=== PATIENT | female | born 1945 | race Caucasian/White ===

== ENCOUNTER 2018-01-03 09:37 | Outpatient (CLI) | payer MEDICARE | END 2018-01-03 09:38 | disposition home or self-care (01) | LOC: BICMAMMO 09:37 | PROVIDERS: ATTEND Internal Medicine Hematology & Oncology | DX: Z12.31 Encounter for screening mammogram for malignant neoplasm of breast (principal) | CPT/HCPCS: 77063; 77067 ==

== ENCOUNTER 2019-01-07 10:35 | Outpatient (CLI) | payer MEDICARE ==
--- NOTE | 2019-01-07 11:12 | MMO ---
Bilateral MAMMO Bilat Screen [facility]. CLINICAL HISTORY: Patient is 73 years old and is seen for screening. The patient has no family history of breast cancer. The patient has no personal history of cancer. 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 VIEWS: The views performed were: bilateral craniocaudal with tomosynthesis and bilateral mediolateral oblique with tomosynthesis. FILMS COMPARED: The present examination has been compared to prior imaging studies performed at [facility] on 05/28/2015, 01/01/2016, 01/02/2017 and 01/03/2018. MAMMOGRAM FINDINGS: There are scattered fibroglandular densities. Finding 1: There is a stable area of architectural distortion with associated post-surgical scar seen in the right breast. Finding 2: There are multiple biopsy clips seen in the right breast. Finding 3: There are stable benign appearing calcifications seen in both breasts. There are no suspicious masses, suspicious calcifications, or new areas of architectural distortion. IMPRESSION: THERE IS NO MAMMOGRAPHIC EVIDENCE OF MALIGNANCY. A ROUTINE FOLLOW-UP MAMMOGRAM IN 1 YEAR IS RECOMMENDED. THE RESULTS OF THIS EXAM WERE SENT TO THE PATIENT. ACR BI-RADS Category 2 - Benign finding MAMMOGRAPHY NOTE: 1. A negative mammogram report should not delay a biopsy if a dominant of clinically suspicious mass is present. 2. Approximately 10% to 15% of breast cancers are not detected by mammography. 3. Adenosis and dense breasts may obscure an underlying neoplasm.
== END 2019-01-07 10:36 | disposition home or self-care (01) ==
LOC: BICMAMMO 10:35
PROVIDERS: ATTEND Internal Medicine Hematology & Oncology
DX: Z12.31 Encounter for screening mammogram for malignant neoplasm of breast (principal); Z98.890 Other specified postprocedural states
CPT/HCPCS: 77063; 77067

== ENCOUNTER 2019-05-04 16:33 | Observation (INO) | payer MEDICARE ==
[2019-05-04] MEDS ORDERED: Lidocaine 2% 10 ML INJ ONE (17:35)
[2019-05-04] MEDS ORDERED: Lidocaine 1% PF 5 ML VIAL ONE ×2 (17:43→22:39)
[2019-05-04] MEDS ORDERED: Lidocaine 1% w/Epinephrine 1:100K 20 ML VIAL FS SCH (18:00)
[2019-05-04] MEDS ORDERED: Morphine 4 MG/ML VIAL ONE (18:35)
[2019-05-04] MEDS ORDERED: Fentanyl 100 MCG/2 ML VIAL SLOW IVP SCH (21:30)
[2019-05-04] MEDS ORDERED: Fentanyl 100 MCG/2 ML VIAL SLOW IVP PRN (21:45)
[2019-05-04] MEDS ORDERED: Fentanyl 100 MCG/2 ML VIAL ONE ×3 (21:53→22:13)
[2019-05-04] MEDS ORDERED: Propofol 500 MG/50 ML VIAL ONE ×2 (22:02→22:13)
[2019-05-04] MEDS ORDERED: Chlorhexidine Gluconate 15 ML UDCUP SSP ONE (22:03)
[2019-05-04] MEDS ORDERED: Midazolam HCl 2 mg/2 ml Vial ONE (22:13)
[2019-05-04] MEDS ORDERED: Ketamine 50 MG/ML (10ML VIAL) ONE ×2 (22:13→22:21)
[2019-05-04] MEDS ORDERED: Penicillin G Potassium 2.5 MILL.UNITS in Sodium Chloride 0.9% 50 ML IVPB SCH (22:15)
[2019-05-04] MEDS ORDERED: Famotidine/PF 20 mg/2ml Vial ONE (22:19)
[2019-05-04] MEDS ORDERED: Esmolol 100 MG/10 ML VIAL ONE (22:39)
[2019-05-04] MEDS ORDERED: Ondansetron PF 4 MG/2 ML Vial ONE (22:39)
[2019-05-04] MEDS ORDERED: Labetalol HCl 100 MG/20 ML VIAL ONE (22:39)
[2019-05-04] MEDS ORDERED: Tranexamic Acid 1,000 MG/10 ML VIAL ONE ×3 (23:06→23:09)
--- NOTE | 2019-05-04 23:21 | CON ---
DATE OF CONSULTATION: HISTORY OF PRESENT ILLNESS: A 74-year-old female, status post ground level fall with anterior alveolar fracture and dental posterior subluxation, presents to the ED. OMFS consulted for treatment and evaluation. MEDICAL HISTORY: Reviewed and significant for history of a stroke, currently being managed on aspirin and Plavix. PHYSICAL EXAMINATION: VITAL SIGNS: Stable. She is afebrile. GENERAL: She is well nourished, well distended. Pain is well controlled. She is able to converse. HEAD, EARS, EYES, NOSE, AND THROAT: Normocephalic, atraumatic. Eyes are equal. Pupils are equal, round, and reactive to light and accommodation. Nose is midline. Nares are patent. Throat is supple. MAXILLOFACIAL: Moderate upper lip edema, ecchymosis, mid upper lip 3-mm laceration along the vermilion border, very superficial. Significant posterior luxation of teeth #8 and 9 with malocclusion, obvious maxillary anterior alveolar fracture with dental displacement preventing patient from occluding in centric occlusion. Teeth #10 and #7 fractured crowns at the level of the gingiva, non-restorable. CARDIAC: Regular rhythm and rate. No murmurs, rubs, or gallops. PULMONARY: Clear to auscultation bilaterally. No wheezes, rales, or rhonchi. MUSCULOSKELETAL: 5/5 upper and lower extremity strength. NEURO: Cranial nerves 2 through 12 grossly intact. IMAGING DATA: CT scan of maxillofacial, noncontrast, reveals posterior partial avulsion and luxation of teeth #8 and 9 secondary to an alveolar fracture that is displaced and complete. Teeth #10 and 7; crowns are fractured at the level of gingiva concerning for restorability. Tooth #6 has a periapical radiolucency, likely a chronic problem. No other osseous fractures identified. LABORATORY DATA: CBC and Chem panel are pending. PLAN: Take to the operating room for closed reduction of alveolar fracture with Jose G arch bar placement and partial rigid fixation secondary to alveolar fracture, extraction of nonrestorable teeth, closure of any soft tissue or mucosal lacerations. The patient will likely be admitted for observation in the Med- Surg floor due to the procedure taking place at 11:00 p.m. Job ID: [id number] [facility]
[2019-05-04] MEDS ORDERED: traMADol HCl 50 MG TAB PO PRN (23:53)
[2019-05-04] MEDS ORDERED: Acetaminophen 325 MG TAB PO PRN (23:54)
[2019-05-04] MEDS ORDERED: Promethazine HCl 25 MG/ML VIAL IM PRN (23:57)
[2019-05-04] MEDS ORDERED: Promethazine HCl 25 MG/ML VIAL SLOW IVP PRN (23:57)
[2019-05-04] MEDS ORDERED: PACU-Morphine 4MG/ML VIAL SLOW IVP PRN (23:57)
[2019-05-04] MEDS ORDERED: Ketorolac Tromethamine 30 MG/ML VIAL IVP PRN (23:57)
[2019-05-05] MEDS ORDERED: Ondansetron PF 4 MG/2 ML Vial SLOW IVP PRN (00:05)
[2019-05-05] MEDS ORDERED: Acetaminophen 325 MG TAB PO PRN (01:03)
[2019-05-05 04:41] VITALS: BMI 41.5
[2019-05-05] MEDS: [UNRECOGNIZED DRUG - OTHER] IVPB SCH ×2 (05:46→08:29)
[2019-05-05] MEDS: ADMIXTURE FEE IVPB SCH ×2 (05:46→08:29)
[2019-05-05] MEDS: PENICILLIN POTASSIUM IVPB SCH ×2 (05:46→08:29)
[2019-05-05] MEDS ORDERED: Chlorhexidine Gluconate 15 ML UDCUP SSP SCH (07:00)
[2019-05-05 07:52] VITALS: BP 102/63; TEMP 97.6
[2019-05-05] MEDS ORDERED: FLU VACC TS2019-20(65YR UP)/PF 180 MCG/0.5 ML SYRINGE IM ONE (09:00)
--- NOTE | 2019-05-07 10:40 | OP ---
DATE OF PROCEDURE: 05/04/2019 PREOPERATIVE DIAGNOSES: Maxillary anterior alveolar plate fracture, nonrestorable #7 and #10 and posteriorly luxated teeth #8 and #9. POSTOPERATIVE DIAGNOSES: Maxillary anterior alveolar plate fracture, nonrestorable #7 and #10 and posteriorly luxated teeth #8 and #9. PROCEDURES PERFORMED: 1. Application of Daniel arch bars and reduction of alveolar plate fracture. 2. Extraction of teeth #7 and #10. 3. Repositioning and stabilizing teeth #8 and #9 using daniel arch bar back: None. ESTIMATED BLOOD LOSS: Less than 10 mL. URINE OUTPUT: None. No Acuna. FINDINGS: Gross posteriorly displaced anterior maxillary alveolus attached to the soft tissue pedicle, mildly displaced #8 and #9, but stable, nonrestorable #7 and #10. COMPLICATIONS: None. DISPOSITION: PACU. HARDWARE: Stainless steel Daniel arch bars with 26-gauge wire fixation. COMMENTS: No surgical or anesthesia complications. INDICATIONS: The patient initially presented to [facility] after sustaining a ground level fall with significant maxillary anterior dentoalveolar fracture and displacement. After clinical assessment, it was noted that the patient would require alveolar reduction in an operating room setting with application of Daniel arch bars and repositioning of teeth #8 and #9 in addition to extraction of teeth #7 and #10. Risks, benefits, alternatives, and indications for procedure were discussed with the patient and she had the opportunity to ask questions and have them answered. She elected to proceed with the recommended procedure. DESCRIPTION OF PROCEDURE: The patient was then transferred to the operating room B, placed on the operating room table in a supine position. Standard monitors and preoxygenation were applied. The patient was noted to be stable, induced into a state of deep sedation under local MAC via an intravenous route. The patient was then placed in a slight reverse Trendelenburg position. No Acuna was placed. At this point, using local anesthesia, infiltrated 6 mL of 2% lidocaine with 1:100, 000 epinephrine. We then used a #9 periosteal elevator and slightly released the tissue around teeth #7 and teeth #10. Teeth #7 and #10 were both extracted using elevators and forceps. Copious irrigation of site. Next, repositioned teeth #8 and #9, which were stable and moved as a unit of the maxillary alveolar complex. Site was reduced using Daniel arch bars, which were fixated to the maxillary dentition using 26-gauge stainless steel wires. Site was noted to be stable. Occlusion was assessed and mandibular dentition was noted to not be causing occlusal trauma to the lingual aspect of teeth #8 and #9. 3-0 chromic gut suture was placed over the extraction sites #7 and #10. Copious irrigation of all sites. At this point, the procedure was deemed complete. The patient had spontaneous respirations and were intact. The patient was then transferred to the PACU in stable condition with no complications. Job ID: [id number] [facility]PITALBenjamín
== END 2019-05-05 10:30 | disposition home or self-care (01) ==
LOC: ERS 16:33 → SDC/OP 23:20 → SJJU 23:48
PROVIDERS: ADMIT Oral & Maxillofacial Surgery; ATTEND Oral & Maxillofacial Surgery
PROC: 0NSRXZZ Reposition Maxilla, External Approach (ICD-10-PCS; principal; 2019-05-04)
PROC: 0CDWXZ1 Extraction of Upper Tooth, Multiple, External Approach (ICD-10-PCS; 2019-05-04)
DX: S02.42XA Fracture of alveolus of maxilla, initial encounter for closed fracture (principal); K08.89 Other specified disorders of teeth and supporting structures; I10 Essential (primary) hypertension; C50.919 Malignant neoplasm of unspecified site of unspecified female breast; Z79.82 Long term (current) use of aspirin; Z79.899 Other long term (current) drug therapy; Z88.5 Allergy status to narcotic agent; Z86.73 Personal history of transient ischemic attack (TIA), and cerebral infarction without residual deficits; W18.30XA Fall on same level, unspecified, initial encounter
CPT/HCPCS: 21421; 41899; 94640; 96365; 96366; 96375; 99284; G0378; 96374; G0390; J0131; J2001; J2250; J2270; J2405; J2540; J2704; J3010; S0028

== ENCOUNTER 2019-08-09 11:52 | Outpatient (CLI) | payer MEDICARE ==
--- NOTE | 2019-08-09 13:53 | MRI ---
Exam: Brain MRI with and without contrast HISTORY: Ataxia. Difficulty walking. Balance issues x3 weeks. COMPARISON: 10/09/2014 FINDINGS: Gradient echo sequence: No hemorrhage Calvarium: Appropriate T1 marrow signal intensity Midline brain parenchyma: Unremarkable Cerebrum:No parenchymal mass, mass effect or midline shift. Age-appropriate atrophy. T2 and FLAIR whi te matter hyperintensities, slightly more prevalent since the previous examination likely represents progression of chronic small vessel ischemic change. No associated restricted diffusion or white matter enhancement. Ventricles: No evidence of hydrocephalus. Sinuses and mastoid air cells: Adequate aeration Diffusion: Central arterial flow is maintained. Absent restricted diffusion. Postcontrast images: No pathologic enhancement of the brain parenchyma. IMPRESSION: 1. Progression of T2 and FLAIR white matter hyperintensities likely due to progression of chronic sma ll vessel ischemic change. 2. No pathologic enhancement the brain parenchyma. 3. Absent effusion. No acute infarct. 4. Adequate aeration of the mastoid air cells. 5. No signal abnormality in the posterior fossa
--- NOTE | 2019-08-09 14:17 | MRI ---
MRI OF THE LUMBAR SPINE WITHOUT CONTRAST: DATE: 08/09/2019. HISTORY: Difficulty walking, fall in April. TECHNIQUE: Multiplanar, multisequence MR imaging of the lumbar spine obtained without contrast. FINDINGS: On the basis of 5 lumbar-type vertebral bodies the conus medullaris terminates at the L1-2 level. T12-L1: Mild bilateral facet hypertrophy. There is disk space narrowing and disk desiccation. Smal l bilateral perineural sleeve cyst. No central canal or neural foraminal stenosis. L1-2: There is disk space narrowing with disk desiccation and mild disk bulge. Mild bilateral facet hypertrophy and hypertrophy of the ligamentum flavum. Vacuum disk formation and mild anterior osteo phyte formation. No significant central canal or neural foraminal stenosis. L2-3: Mild bilateral facet hypertrophy. There is disk space narrowing and disk desiccation with mil d disk bulge and mild central canal stenosis. Mild right neural foraminal stenosis. L3-4: Disk space narrowing with disk desiccation and vacuum disk formation. Bilateral laminectomy c hanges are present. Minimal disk bulge with no central canal stenosis. Mild bilateral facet hypertr ophy. There is moderate right and mild left neural foraminal stenosis. L4-5: There is disk space narrowing with disk desiccation. There is mild anterolisthesis of L4 on L 5 measuring 5 mm. Bilateral facet hypertrophy with mild bilateral neural foraminal stenosis. No sig nificant central canal stenosis. L5-S1: There is disk space narrowing and disk desiccation. Mild bilateral facet hypertrophy with no significant central canal or neural foraminal stenosis. Postoperative T2 hyperintensity is seen pos terior to the thecal sac at L3 and L4 as well as within the subcutaneous fat posterior to the L2, L3, and L4 vertebral levels. The visualized retroperitoneal structures demonstrate no acute findings. IMPRESSION: Postoperative and degenerative change within the lumbar spine as detailed above. POS: TPC
== END 2019-08-09 11:53 | disposition home or self-care (01) ==
LOC: SCSMRI 11:52
PROVIDERS: ATTEND Psychiatry & Neurology Neurology
DX: R27.0 Ataxia, unspecified (principal); M47.816 Spondylosis without myelopathy or radiculopathy, lumbar region; Z98.890 Other specified postprocedural states; H74.8X9 Other specified disorders of middle ear and mastoid, unspecified ear
CPT/HCPCS: 70553; 72148; 82565

== ENCOUNTER 2020-01-27 10:48 | Outpatient (CLI) | payer MEDICARE ==
--- NOTE | 2020-01-27 12:07 | MMO ---
Bilateral MAMMO Bilat Screen [facility]. CLINICAL HISTORY: Patient is 75 years old and is seen for screening. The patient has no family history of breast cancer. The patient has a history of malignant (generic) in the right breast at age 65. 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 VIEWS: The views performed were: bilateral craniocaudal with tomosynthesis and bilateral mediolateral oblique with tomosynthesis. FILMS COMPARED: The present examination has been compared to prior imaging studies performed at [facility] [place] on 01/01/2016, 01/02/2017, 01/03/2018 and 01/07/2019. This study has been interpreted with the assistance of computer-aided detection. MAMMOGRAM FINDINGS: There are scattered fibroglandular densities. Finding 1: There are stable benign appearing calcifications seen in both breasts. Finding 2: There is a stable post-surgical scar seen in the right breast. Finding 3: There are stable focal asymmetries seen in both breasts. There are no suspicious masses, suspicious calcifications, or new areas of architectural distortion. IMPRESSION: THERE IS NO MAMMOGRAPHIC EVIDENCE OF MALIGNANCY. A ROUTINE FOLLOW-UP MAMMOGRAM IN 1 YEAR IS RECOMMENDED. THE RESULTS OF THIS EXAM WERE SENT TO THE PATIENT. ACR BI-RADS Category 2 - Benign finding MAMMOGRAPHY NOTE: 1. A negative mammogram report should not delay a biopsy if a dominant of clinically suspicious mass is present. 2. Approximately 10% to 15% of breast cancers are not detected by mammography. 3. Adenosis and dense breasts may obscure an underlying neoplasm. Reported by: MATTHIAS DINERO MD Electonically Signed: [id number]
== END 2020-01-27 10:49 | disposition home or self-care (01) ==
LOC: BICMAMMO 10:48
PROVIDERS: ATTEND Internal Medicine Hematology & Oncology
DX: Z12.31 Encounter for screening mammogram for malignant neoplasm of breast (principal); Z85.3 Personal history of malignant neoplasm of breast; Z98.890 Other specified postprocedural states
CPT/HCPCS: 77063; 77067

== ENCOUNTER 2021-01-28 08:40 | Outpatient (CLI) | payer MEDICARE | END 2021-01-28 08:41 | disposition home or self-care (01) | LOC: BICMAMMO 08:40 | PROVIDERS: ATTEND Internal Medicine Hematology & Oncology | DX: Z12.31 Encounter for screening mammogram for malignant neoplasm of breast (principal); Z85.3 Personal history of malignant neoplasm of breast; Z98.890 Other specified postprocedural states | CPT/HCPCS: 77063; 77067 ==

== ENCOUNTER 2021-03-15 14:47 | Outpatient (CLI) | payer MEDICARE | END 2021-03-15 14:48 | disposition home or self-care (01) | LOC: BICMAMMO 14:47 | PROVIDERS: ATTEND Family Medicine | DX: Z13.820 Encounter for screening for osteoporosis (principal); M85.852 Other specified disorders of bone density and structure, left thigh; M81.0 Age-related osteoporosis without current pathological fracture; Z78.0 Asymptomatic menopausal state | CPT/HCPCS: 77080 ==

== ENCOUNTER 2021-03-30 17:33 | Inpatient (IN) | payer MEDICARE ==
[2021-03-30 18:33] LABS: Hemoglobin 13.5 g/dL (12.0-16.0); Mean Corpuscular Hemoglobin 35.2 pg (27.0-31.0); Platelet Count 255 thou/uL (130-400); RBC Distribution Width 11.1 % (11.5-14.5); Red Blood Cell (RBC) Count 3.82 mill/uL (4.20-5.40); White Blood Cell (WBC) Count 17.8 thou/uL (4.8-10.8)
[2021-03-30 18:49] LABS: Band 6 % (5-11); Lymphocytes 5 % (21-51); MDiff Complete? YES; Macrocytosis SLIGHT = 6-15 cells (100X) (0-5/hpf); Monocytes 5 % (0-10); Neutrophil 84 % (42-75); Platelet Morphology Comment Appears Adequate
[2021-03-30 18:53] LABS: ALT (SGPT) 14 U/L (8-55); AST (SGOT) 20 U/L (5-34); Albumin 3.8 g/dL (3.4-4.8); Alkaline Phosphatase 135 U/L (40-110); Anion Gap 14 mmol/L (10-20); BUN (Urea Nitrogen) 20 mg/dL (9.8-20.1); Bilirubin, Total 0.6 mg/dL (0.2-1.2); Calc. Creatinine Clearance 0 mL/min (70-130); Calcium 9.3 mg/dL (7.8-10.44); Carbon Dioxide 25 mmol/L (23-31); Chloride 101 mmol/L (98-107); Globulin 3.6 g/dL (2.4-3.5); Glucose 118 mg/dL (83-110); Potassium 4.3 mmol/L (3.5-5.1); Protein, Total 7.4 g/dL (5.8-8.1); Sodium 136 mmol/L (136-145)
[2021-03-30] MEDS ORDERED: Acetaminophen 325 MG TAB ONE (18:59)
[2021-03-30] MEDS ORDERED: Cefepime 2 GM VIAL ONE (18:59)
[2021-03-30 19:12] LABS: Bacteria/HPF None Seen HPF (None Seen); Bilirubin Negative (Negative); Blood, Urine Trace (Negative); Clarity Clear (Clear); Glucose, Urine (Dipstick) Normal (Negative); Ketone, Urine Negative (Negative); Leukocyte 25 Leu/uL (Negative); Nitrite Negative (Negative); Protein, Urine (Dipstick) Negative (Neg-Trace); Specific Gravity, Urine 1.012 (1.002-1.036); Squamous Epithelial 0-3 HPF (0-3); Urobilinogen Normal mg/dL (Less than 2); WBC/HPF 0-3 HPF (0-3); pH, Urine 5.5 (5.0-9.0)
[2021-03-30 19:28] LABS: SARS-CoV-2 NAA Rapid Test Not Detected (NotDetected)
[2021-03-30] MEDS ORDERED: VANCOMYCIN 2 GRAM/400 ML BAG 2 GM in Premix Bag 1 BAG IVPB SCH (20:30)
[2021-03-31] MEDS ORDERED: Acetaminophen 325 MG TAB PO PRN (00:04)
[2021-03-31] MEDS ORDERED: Ondansetron PF 4 MG/2 ML Vial IVP PRN (00:04)
[2021-03-31] MEDS ORDERED: Ondansetron ODT 4 MG TAB PO PRN (00:04)
[2021-03-31] MEDS ORDERED: Acetaminophen 650 MG Suppository PR PRN (00:04)
[2021-03-31] MEDS ORDERED: Morphine 4 MG/ML VIAL SLOW IVP PRN (00:09)
[2021-03-31] MEDS ORDERED: Morphine 4 MG/ML VIAL ONE (05:00)
[2021-03-31] MEDS ORDERED: Ondansetron PF 4 MG/2 ML Vial ONE (05:00)
[2021-03-31] MEDS: Sodium Chloride 0.9% 1,000 ML IV SCH ×3 (05:08→20:57)
[2021-03-31 08:42] LABS: #Lymphocytes 1.3 thou/uL (1.20-3.40); #Monocytes 0.8 thou/uL (0.11-0.59); %Basophils 0.1 % (0.0-1.0); %Eosinophils 0.2 % (0.0-10.0); %Lymphocytes 9.2 % (21.0-51.0); %Monocytes 5.5 % (0.0-10.0); Hemoglobin 12.2 g/dL (12.0-16.0); Mean Corpuscular HGB CONC 33.1 g/dL (32.0-36.0); Mean Corpuscular Hemoglobin 34.5 pg (27.0-31.0); Mean Platelet Volume 7.7 fL (7.4-10.4); Platelet Count 176 thou/uL (130-400); RBC Distribution Width 11.1 % (11.5-14.5); Red Blood Cell (RBC) Count 3.52 mill/uL (4.20-5.40); White Blood Cell (WBC) Count 14.2 thou/uL (4.8-10.8)
[2021-03-31 08:59] LABS: Anion Gap 12 mmol/L (10-20); BUN (Urea Nitrogen) 20 mg/dL (9.8-20.1); Calc. Creatinine Clearance 0 mL/min (70-130); Calcium 8.4 mg/dL (7.8-10.44); Carbon Dioxide 22 mmol/L (23-31); Chloride 102 mmol/L (98-107); Glucose 86 mg/dL (83-110); Sodium 132 mmol/L (136-145)
[2021-03-31] MEDS ORDERED: Cefepime 2 GM in Sodium Chloride 0.9% 100 ML IVPB SCH (09:00)
[2021-03-31] MEDS ORDERED: Vancomycin HCl 1.5 GM in Sodium Chloride 0.9% 250 ML 300 ML IVPB SCH (09:00)
[2021-03-31] MEDS ORDERED: Enoxaparin Sodium 30 MG/0.3 ML SYRINGE ONE (09:11)
[2021-03-31] MEDS: Enoxaparin Sodium 30 MG/0.3 ML SYRINGE SC SCH (09:17)
[2021-03-31] MEDS ORDERED: Iopamidol 370 76% 50 ML VIAL FS ONE (09:18)
[2021-03-31] MEDS ORDERED: Iopamidol-370 76% 500 ML 1 ML ONE (09:18)
[2021-03-31] MEDS ORDERED: Ketorolac Tromethamine 30 MG/ML VIAL IVP SCH (12:15)
[2021-03-31] MEDS ORDERED: Ketorolac Tromethamine 30 MG/ML VIAL ONE (12:29)
[2021-03-31 15:22] VITALS: BMI 42.0
[2021-03-31] MEDS ORDERED: Sodium Chloride 0.9% 500 ML IVPB SCH (16:45)
[2021-03-31] MEDS: Cefepime 1 GM in Sodium Chloride 0.9% 100 ML IVPB SCH (20:56)
[2021-03-31] MEDS: VANCOMYCIN 1.25 GM/250 ML BAG 1.25 GM in Premix Bag 1 BAG IVPB SCH (22:02)
[2021-03-31] MEDS: Melatonin 3 MG TAB PO PRN (22:02)
[2021-04-01] MEDS: Sodium Chloride 0.9% 1,000 ML IV SCH ×2 (06:20→18:17)
[2021-04-01] MEDS: Enoxaparin Sodium 30 MG/0.3 ML SYRINGE SC SCH (09:17)
[2021-04-01 09:21] LABS: Hemoglobin 11.7 g/dL (12.0-16.0); Mean Corpuscular HGB CONC 32.8 g/dL (32.0-36.0); Mean Corpuscular Hemoglobin 34.6 pg (27.0-31.0); Mean Platelet Volume 7.5 fL (7.4-10.4); Platelet Count 227 thou/uL (130-400); RBC Distribution Width 11.2 % (11.5-14.5); Red Blood Cell (RBC) Count 3.37 mill/uL (4.20-5.40); White Blood Cell (WBC) Count 9.7 thou/uL (4.8-10.8)
[2021-04-01 09:27] LABS: ALT (SGPT) 14 U/L (8-55); AST (SGOT) 29 U/L (5-34); Albumin 3.1 g/dL (3.4-4.8); Alkaline Phosphatase 115 U/L (40-110); Anion Gap 10 mmol/L (10-20); BUN (Urea Nitrogen) 17 mg/dL (9.8-20.1); Bilirubin, Total 0.4 mg/dL (0.2-1.2); Calc. Creatinine Clearance 71 mL/min (70-130); Calcium 8.6 mg/dL (7.8-10.44); Carbon Dioxide 19 mmol/L (23-31); Chloride 109 mmol/L (98-107); Globulin 3.1 g/dL (2.4-3.5); Glucose 91 mg/dL (83-110); Potassium 4.2 mmol/L (3.5-5.1); Protein, Total 6.2 g/dL (5.8-8.1); Sodium 134 mmol/L (136-145)
[2021-04-01 09:40] LABS: #Eosinphils 0.1 thou/uL (0.0-0.7); #Monocytes 0.7 thou/uL (0.11-0.59); #Neutrophils 7.9 thou/uL (1.40-6.50); %Basophils 0.3 % (0.0-1.0); %Eosinophils 0.8 % (0.0-10.0); %Lymphocytes 10.1 % (21.0-51.0); %Monocytes 7.5 % (0.0-10.0); %Neutrophils 81.4 % (42.0-75.0); MDiff Complete? YES; Macrocytosis SLIGHT = 6-15 cells (100X) (0-5/hpf); Polychromasia SLIGHT = 2-3 cells (100X) (0-2/hpf)
[2021-04-01] MEDS ORDERED: Alendronate Sodium 70 mg Tablet PO SCH (15:15)
[2021-04-01] MEDS: Gabapentin 300 MG CAP PO SCH (20:27)
[2021-04-01] MEDS: Cefepime 1 GM in Sodium Chloride 0.9% 100 ML IVPB SCH (20:28)
[2021-04-01] MEDS: buPROPion HCl 100 MG TAB PO SCH (20:28)
[2021-04-01] MEDS: Lisinopril 20 MG TAB PO SCH (20:29)
[2021-04-01 20:52] LABS: Vancomycin, Trough 13.8 ug/mL
[2021-04-01] MEDS: Ketorolac Tromethamine 30 MG/ML VIAL IVP PRN (22:16)
[2021-04-01] MEDS: VANCOMYCIN 1.25 GM/250 ML BAG 1.25 GM in Premix Bag 1 BAG IVPB SCH (22:17)
[2021-04-01] MEDS: Melatonin 3 MG TAB PO PRN (23:21)
[2021-04-02] MEDS: Sodium Chloride 0.9% 1,000 ML IV SCH (04:11)
[2021-04-02] MEDS: Ketorolac Tromethamine 30 MG/ML VIAL IVP PRN (06:39)
[2021-04-02 07:35] VITALS: BP 106/53; TEMP 97.3
[2021-04-02] MEDS: Gabapentin 300 MG CAP PO SCH (07:50)
[2021-04-02] MEDS: buPROPion HCl 100 MG TAB PO SCH (07:51)
[2021-04-02] MEDS: Lisinopril 20 MG TAB PO SCH (07:51)
[2021-04-02] MEDS ORDERED: Enoxaparin Sodium 40 MG/0.4 ML SYRINGE SC SCH (09:00)
[2021-04-02] MEDS ORDERED: Furosemide 20 MG TAB PO SCH (09:00)
[2021-04-02] MEDS ORDERED: FLUoxetine HCl 20 MG CAP PO SCH (09:00)
[2021-04-02] MEDS ORDERED: Atorvastatin Calcium 20 MG TAB PO SCH (09:00)
[2021-04-02] MEDS ORDERED: Clopidogrel Bisulfate 75 MG TAB PO SCH (09:00)
[2021-04-02] MEDS ORDERED: Aspirin Chewable 81 MG TAB PO SCH (09:00)
== END 2021-04-02 12:03 | disposition home or self-care (01) | DRG 871 ==
LOC: ERS 17:33 → ERHOLD 20:38 → ONC 03-31 14:53
PROVIDERS: ADMIT Student in an Organized Health Care Education/Training Program; ATTEND Internal Medicine
DX: A41.9 Sepsis, unspecified organism (principal); G93.41 Metabolic encephalopathy; N17.9 Acute kidney failure, unspecified; Z20.822 Contact with and (suspected) exposure to COVID-19; N61.0 Mastitis without abscess; E78.5 Hyperlipidemia, unspecified; N18.30 Chronic kidney disease, stage 3 unspecified; F32.9 Major depressive disorder, single episode, unspecified; I12.9 Hypertensive chronic kidney disease with stage 1 through stage 4 chronic kidney disease, or unspecified chronic kidney disease; D75.89 Other specified diseases of blood and blood-forming organs; Z88.5 Allergy status to narcotic agent; Z79.899 Other long term (current) drug therapy; Z79.82 Long term (current) use of aspirin; Z79.02 Long term (current) use of antithrombotics/antiplatelets; Z86.73 Personal history of transient ischemic attack (TIA), and cerebral infarction without residual deficits; Z85.3 Personal history of malignant neoplasm of breast; Z90.49 Acquired absence of other specified parts of digestive tract
CPT/HCPCS: 0240U; 36415; 70450; 71045; 74177; 80048; 80053; 80202; 81003; 81015; 83605; 84484; 85025; 87040; 87086; 93005; 96365; 96366; 96367; J0692; J1650; J1885; J2270; J2405; J3370; J3490; J7030; J7050; Q9967

== ENCOUNTER 2022-02-18 10:49 | Outpatient (CLI) | payer MEDICARE | END 2022-02-18 10:50 | disposition home or self-care (01) | LOC: BICMAMMO 10:49 | PROVIDERS: ATTEND Internal Medicine Hematology & Oncology | DX: Z12.31 Encounter for screening mammogram for malignant neoplasm of breast (principal); Z85.3 Personal history of malignant neoplasm of breast; Z98.890 Other specified postprocedural states | CPT/HCPCS: 77063; 77067 ==

== ENCOUNTER 2023-10-18 12:30 | Outpatient (CLI) | payer MEDICARE | END 2023-10-18 12:31 | disposition home or self-care (01) | LOC: CT 12:30 | PROVIDERS: ATTEND Psychiatry & Neurology Neurology | DX: G45.9 Transient cerebral ischemic attack, unspecified (principal); R90.89 Other abnormal findings on diagnostic imaging of central nervous system; I67.82 Cerebral ischemia; I07.1 Rheumatic tricuspid insufficiency | CPT/HCPCS: 70450; 93306; 93880 ==

== ENCOUNTER 2024-01-23 08:45 | Outpatient (CLI) | payer MEDICARE | END 2024-01-23 08:46 | disposition home or self-care (01) | LOC: PET 08:45 | PROVIDERS: ATTEND Psychiatry & Neurology Neurology | DX: R41.3 Other amnesia (principal) | CPT/HCPCS: 78803; A9552 ==

== ENCOUNTER 2024-07-11 07:57 | Outpatient (CLI) | payer MEDICARE | END 2024-07-11 07:58 | disposition home or self-care (01) | LOC: NM 07:57 | PROVIDERS: ATTEND Psychiatry & Neurology Neurology | DX: G20.C Parkinsonism, unspecified (principal) | CPT/HCPCS: 78803; A9584 ×2 ==